=== PATIENT | female | born 2000 | race Asian ===

== ENCOUNTER 2021-07-26 11:23 | Emergency (ER) | payer SELFPAY ==
[~2021-07-26] VITALS: Ht 160 cm; Wt 48.5 kg
--- NOTE | 2021-07-26 11:27 | NUR ---
pt kathleen from work. 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 pt was assisted to the ground. 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 bg was checked and 97 boat captain. placed on monitor, stable vitals. awaiting md garcia.
--- NOTE | 2021-07-26 11:35 | NUR ---
[id number] AOX4 C/O SYNCOPAL EPISODE WHILE AT WORK. DENIES FEVER OR CHEST PAIN. PT CHANGED INTO GOWN AND IS RESTING COMFORTABLY. AWAITING MD SALAMANCA.
--- NOTE | 2021-07-26 11:52 | NUR ---
LAB AT BEDSIDE
--- NOTE | 2021-07-26 11:54 | NUR ---
lab support service tech at bedside for blood draw.
--- NOTE | 2021-07-26 12:35 | NUR ---
ORTHOSTATIC BP OBTAINED
[2021-07-26 12:36] LABS: CALCIUM, SERUM 9.4 mg/dL (8.5-10.1); CREATININE 0.7 mg/dL (0.6-1.3); POTASSIUM 3.9 mmol/L (3.5-5.1)
[2021-07-26 12:43] LABS: BASOPHILS # (AUTO) 0.1 K/uL (0.0-0.2); BASOPHILS % (AUTO) 0.9 % (0.0-2.0); EOSINOPHILS % (AUTO) 1.7 % (0.0-6.0); HEMATOCRIT 39 % (33-45); HEMOGLOBIN 12.6 g/dL (11.5-14.8); LYMPHOCYTES # (AUTO) 1.5 K/uL (0.8-4.8); LYMPHOCYTES % (AUTO) 25.5 % (20.0-44.0); MEAN CORPUSCULAR HGB CONC 33 g/dl (31.0-36.0); MEAN CORPUSCULAR VOLUME 82 fL (82-100); MONOCYTES # (AUTO) 0.3 K/uL (0.1-1.30); MONOCYTES % (AUTO) 5.4 % (2.0-12.0); NEUTROPHILS # (AUTO) 3.8 K/uL (1.8-8.9); NEUTROPHILS % (AUTO) 66.5 % (43.0-81.0); PLATELET COUNT (AUTO) 239 K/uL (150-450); RED BLOOD CELL COUNT(AUTO) 4.77 MIL/uL (4.0-5.2); WHITE BLOOD COUNT (AUTO) 5.8 K/uL (4.3-11.0)
--- NOTE | 2021-07-26 13:24 | NUR ---
Patient discharged to home in stable condition. Written and verbal after care instructions given. Patient verbalizes understanding of instruction.
[2021-07-26 13:25] VITALS: BP 109/60
== END 2021-07-26 13:26 | disposition home or self-care (01) ==
LOC: ER 11:25
DX: R55 Syncope and collapse (principal)
CPT/HCPCS: 36415; 80048-TC; 85025-TC